=== PATIENT | female | born 1970 | race Caucasian/White ===

== ENCOUNTER 2016-09-25 19:55 | Emergency (ER) | payer BC ==
--- NOTE | 2016-10-05 07:29 | ER ---
ADMIT: 09/25/2016 RM/LOC: ER [facility] MR#: [id number] [address] [address] MARJORIE MONTE [address] [place] [place], [place] [address] Emergency Room Report SEX: F AGE: 46 : 1970 DATE: 09/25/2016 ADDENDUM: A 46-year-old female, comes in with complaints of some paresthesias, primarily in her left upper extremity on her forearm. She also states that she has had some vague discomfort in her chest. These symptoms have been going on for about an hour now, came on fairly suddenly and been persistent since onset. She also states that she feels like she has had some shaking sensation primarily in her left upper arm and in general just not felt herself for about a month now. She denies any weakness in any extremity, has not had any recent illness. No fevers or chills. She is slightly anxious and does have some slight tremor to her left upper extremity and the only thing on her neuro exam is that she has some altered light touch, primarily to her forearm on the radial side. Her NIH stroke scale showed she scored 1 and that was for sensory loss or altered sensory. We did get a CT of her head, which was unremarkable. Her CBC was normal, chemistries were normal and her CRP was not elevated. She did receive some Ativan in the Emergency Department as she was quite anxious and she also had some hypertension, which improved when she was more relaxed. At this point, the patient's symptoms are improved, but not entirely back to baseline. I do not believe this is CVA, but we will be discharging the patient home and she is to follow up with her primary care physician as scheduled later today. She was given some Xanax to use as needed for some anxiety. DIAGNOSES: 1. Anxiety. 2. Tremor. 3. Elevated blood pressure. 4. Paresthesia in left arm. Conner Kat MD/ selvin JOB #: [id number] CC: Conner Kat MD, Attending Physician MAIRA Paredes, Family Physician
[2016-11-23] MEDS ORDERED: COLACE-DPS100 MG PO (19:43)
[2016-11-23] MEDS ORDERED: TRINESSA TABLE1 EACH PO (19:43)
[2016-11-23] MEDS ORDERED: PROTONIX40 MG PO (19:43)
[2016-11-23] MEDS ORDERED: THERAPEUTIC MUL1 TAB PO (19:44)
[2016-11-23] MEDS ORDERED: DECADRON-DPS4 MG PO (19:44)
[2016-11-23] MEDS ORDERED: SYNTHROID125 MCG PO (19:44)
[2016-11-23] MEDS ORDERED: KEPPRA DPS500 MG PO (19:44)
[2016-11-23] MEDS ORDERED: ROCEPHIN DPS2 GM IV (19:45)
[2016-11-23] MEDS ORDERED: VANCOMYCIN1 DOSE IV (19:45)
[2016-11-23] MEDS ORDERED: FLAGYL-DPS500 MG PO (19:46)
[2016-11-23] MEDS ORDERED: TYLENOL DPS325 MG PO (19:46)
[2016-11-23] MEDS ORDERED: NORCO 5-325 TA1 EACH PO (19:46)
== END 2016-09-25 23:20 | disposition home or self-care (01) ==
LOC: ER 19:55
DX: R20.9 Unspecified disturbances of skin sensation (principal); I10 Essential (primary) hypertension; F41.9 Anxiety disorder, unspecified; R25.1 Tremor, unspecified; Z88.0 Allergy status to penicillin; Z79.899 Other long term (current) drug therapy

== ENCOUNTER 2016-11-19 14:30 | Inpatient (IN) | payer BC ==
[~2016-11-19] VITALS: Ht 172.7 cm; Wt 70.4 kg
--- NOTE | ~2016-11-19 | DS ---
ADMIT: 11/19/2016 RM/LOC: 530 [facility] MR#: [id number] [address] [address] MARJORIE MONTE [address] [place] [address] General Discharge Summary SEX: F AGE: 46 : 1970 ADMISSION DATE: 11/19/2016 DISCHARGE DATE: 11/21/2016 SERVICE: Neurosurgery. REASON FOR ADMISSION: 1. Abnormal MRI. 2. Brain lesion with cerebral edema. CONSULTS: 1. Nelli Murray MD, with Infectious Disease. 2. Amy Andrade MD, with Ophthalmology. 3. Jose Eduardo Sheehan MD, with Neurology. HOSPITAL COURSE: Ms. Monte is a very pleasant, 46-year-old female whom about a couple of months ago had some tingling in her arm and had some headaches. A CT scan was obtained and was normal. For the last week or two, she had consistent headaches and was actually being treated for a sinus infection. An MRI and CAT scan with contrast was obtained and was abnormal, and she was sent to the [facility] ER for evaluation. The CT scan showed a right-sided frontal parietal ring-enhancing lesion, and the MRI showed the same with quite a bit of vasogenic edema with a 12 mm midline shift. It was noted that her father from a primary brain tumor that was fast growing when she was 4 years old. She was admitted to the intensive care unit for close monitoring and care. She had been taking ibuprofen and that along with a cerebral edema made her poor candidate for cranial surgery or lumbar puncture. Infectious Disease was consulted. She was started on Decadron for the edema. She was also given a one time dose of mannitol. She was started on vancomycin Rocephin and Flagyl. She had a penicillin allergy, therefore was not started on ampicillin. Records were attempted to be obtained from her father and were no longer available. Hospital day #2, she was awake and alert. She was afebrile and her vital signs were stable. She was moving all extremities x4 with 5/5 strength. She was complaining of a headache and nausea. She was started on some p.r.n. tramadol. She was moved out of the intensive care unit to the Med/Surg floor. Dr. Andrade was consulted for evaluation to rule out toxoplasma or CMV. She felt this was negative after examination. She did work with Physical Therapy and Occupational Therapy and tolerated it quite well. An MRI of the brain with contrast was obtained. This revealed 3 large peripherally enhancing intracranial mass lesions in the right cerebral hemisphere with vasogenic edema. Hospital day #3, she was awake and alert, she was afebrile and her vital signs were stable. She was moving all extremities x4 with 5/5 strength. She was complaining of some slight right-sided headache. She did not have a pronator drift. Dr. Sheehan with Neurology was consulted regarding the lesions. She was ambulating, urinating, and defecating per her norm and was requesting discharge home. Plan was for biopsy the following week after the NSAIDs were out of her system for an appropriate amount of time. She was dismissed home. ADMIT: 11/19/2016 RM/LOC: 530 [facility] MR#: [id number] [address] [address] MARJORIE MONTE [address] [place] [address] General Discharge Summary SEX: F AGE: 46 : 1970 DISCHARGE CONDITION: Good. MEDICATIONS: 1. Colace 100 mg p.o. b.i.d. 2. Protonix 40 mg p.o. daily. 3. Decadron 4 mg p.o. q.6 hours. 4. Keppra 500 mg p.o. q.12 hours. 5. Hydrocodone 5/325 p.o. q.4 hours p.r.n. 6. Tylenol 650 mg p.o. q.4 hours p.r.n. 7. Zofran 4 mg p.o. q.4 hours p.r.n. 8. TriNessa daily. 9. Levothyroxine 125 mcg daily. 10.Multivitamin daily. 11.Vancomycin 1.5 g IV q.12 hours. 12.Rocephin 2 g IV q.12 hours. DISCHARGE INSTRUCTIONS: Per Dr. Cooper. She can have a regular diet. She should have a vancomycin trough on 11/22/2016 before her p.m. dose. She should have a CMP on 11/26/[address] Murray. She should not work at this time. She should be up and moving at home, but nothing with strenuous exercise or getting her heart rate cleared. She will call with any questions or concerns including neurological worsening, signs or symptoms of infection, or any other issues. She should not take any NSAIDs or aspirin containing products. FOLLOWUP: She is scheduled for surgery the following week. DISPOSITION: She was discharged home. Total [id number] time for the discharge planning care coordination was 30 minutes. Violet Gambino APRN / Usman Cooper MD / selvin JOB #: [id number] CC: Usman Cooper MD, Attending Physician Usman Cooper MD, Family Physician
--- NOTE | ~2016-11-19 | ECH ---
Transthoracic Echocardiography Report (TTE) Demographics Patient Name MARJORIE MONTE Date of Study 11/20/2016 Patient Number [id number] Visit Number [id number] Date of 1970 Room Number 530 Accession Number [id number] Gender Female Age 46 year(s) Referring Kenneth Adrian Potato Peeler Camila Dale [facility] Physician MD Trevor Whitmore MD Physician Interpreting Azael Abbott MD Assistant Research Scientist Physician Supervising Ordering Physician Trevor Whitmore MD, MD/P Nurse Stress Television News Photographer Conclusions Summary Technically fair exam. The estimated left ventricular ejection fraction is 66-65%. Normal echocardiogram. Procedure Type of Study TTE procedure:Echo Complete SF. Procedure Date Date: 11/20/2016 Start: 02:34 PM Technical Quality: Adequate visualization Indications:Fever. Additional Indications:brain abcess Appropriate Use Criteria: 8 Height: 68 inches Weight: 149 pounds BSA: 1.8 m Rhythm: Within normal limits HR: 72 bpm BP: 145/65 mmHg M-Mode/2D Measurements LV Diastolic Dimension: 4.45 cm LV Systolic Dimension: 2.64 cm LV Septum Diastolic: 0.91 cm LV PW Diastolic: 0.95 cm AO Root Dimension: 2.48 cm Cardiac Output: 4.43 l/min LA Dimension: 3.65 cm Cardiac Index: 2.46 l/min*m RV Diastolic Dimension: 1.96 cm LA volume index: 30 ml/m LVOT: 1.94 cm LVOT VTI: 20.84 cm RV Base: 3.2 cm LV Stroke volume: 61.57 ml LV Stroke volume index: 34.21 ml/m Doppler Measurements AV Peak Velocity: 1.2 m/s MV Peak E-Wave: 0.76 m/s AV Peak Gradient: 5.76 mmHg MV Peak A-Wave: 0.5 m/s AV Mean Gradient: 3.5 mmHg MV E/A Ratio: 1.53 LVOT Peak Velocity: 0.99 m/s MV P1/2t: 50.5 msec AV Area (Continuity):2.64 cm MV Deceleration Time: 165.8 msec MV Area (PHT): 4.36 cm PV Peak Velocity: 0.98 m/s PV Peak Gradient: 3.82 mmHg RA Area: 14.01 cm Findings Left Ventricle The left ventricle is normal in size . Diastolic assessment reveals normal relaxation. Right Ventricle Normal right ventricle structure and function. Left Atrium Normal left atrial size. Right Atrium Normal right atrial size. Mitral Valve Normal mitral valve structure and function. Aortic Valve Normal aortic valve structure and function. Tricuspid Valve Normal tricuspid valve structure and function. Pulmonic Valve Normal pulmonic valve structure and function. Pericardial Effusion No evidence of pericardial effusion. Miscellaneous Visualized portions of the aortic root and ascending aorta appear normal in size. Pleural Effusion No evidence of pleural effusion. Signature
--- NOTE | 2016-11-23 08:25 | ER ---
ADMIT: 11/19/2016 RM/LOC: 309 [facility] MR#: [id number] [address] [place] [id number] MARJORIE MONTE [address] [place] [address] Emergency Room Report SEX: F AGE: 46 : 1970 DATE: 11/19/2016 ADDENDUM: 46-year-old white female coming over from the imaging center, [facility], with initial results of the CT and MRI showing a mass/abscess, unknown etiology. At this time, we did do the sepsis routine on her only because of possibility of abscess though she has no fever and otherwise negative screen. At this time, her exam was normal. We have lab pending here. We have a CT chest, abdomen, and pelvis as well and then I had spoken with Dr. Cooper, Neurosurgery and he will admit. CONDITION ON DISCHARGE: Serious but stable. George Thomason MD/ piercel JOB #: [id number] CC: Usman Cooper MD, Attending Physician Usman Cooper MD, Family Physician
[2016-11-23] MEDS ORDERED: TRINESSA TABLE1 EACH PO (19:43)
[2016-11-23] MEDS ORDERED: COLACE-DPS100 MG PO (19:43)
[2016-11-23] MEDS ORDERED: PROTONIX40 MG PO (19:43)
[2016-11-23] MEDS ORDERED: DECADRON-DPS4 MG PO (19:44)
[2016-11-23] MEDS ORDERED: THERAPEUTIC MUL1 TAB PO (19:44)
[2016-11-23] MEDS ORDERED: SYNTHROID125 MCG PO (19:44)
[2016-11-23] MEDS ORDERED: KEPPRA DPS500 MG PO (19:44)
[2016-11-23] MEDS ORDERED: VANCOMYCIN1 DOSE IV (19:45)
[2016-11-23] MEDS ORDERED: ROCEPHIN DPS2 GM IV (19:45)
[2016-11-23] MEDS ORDERED: TYLENOL DPS325 MG PO (19:46)
[2016-11-23] MEDS ORDERED: NORCO 5-325 TA1 EACH PO (19:46)
[2016-11-23] MEDS ORDERED: FLAGYL-DPS500 MG PO (19:46)
--- NOTE | 2016-11-27 14:23 | CO ---
ADMIT: 11/19/2016 RM/LOC: 530 [facility] MR#: [id number] [address] [address] MARJORIE MONTE [address] [place] [address] Consultation SEX: F AGE: 46 : 1970 DATE OF CONSULTATION: 11/20/2016 ATTENDING PHYSICIAN: Usman Cooper CONSULTING PHYSICIAN: Amy Andrade MD HISTORY OF PRESENT ILLNESS: This patient is a 46-year-old white female, who was admitted from the ER yesterday with a mass over her right parietal area seen on both CAT scan and MRI. She apparently two months ago had tingling in her left arm and leg. At that time, a CAT scan was done of the brain which was read out as normal. She has had a 1-week history of headache, dizziness, and some blurred vision in the right eye. She had an MRI which was found to be abnormal and admitted to the ICU. I do not have access to the MRI as it was done [facility], but according to the nurse, it showed a right parietal lesion with a 12 mm shift. I was consulted by Infectious Disease, Dr. Murray to look for any evidence of toxoplasmosis or CMV on her ocular examination. The patient denies any tingling now in her arms or legs. She denies flashes. She does have a history of some floaters, but this is not changed recently. She has some nausea, but no vomiting. No recent illness. Past ocular history is significant for myopia for which she normally wears contacts, but she is now wearing glasses. PAST MEDICAL HISTORY: Significant for hypothyroidism. She denies any recent history of upper respiratory infection or foreign travel ever in the past. SOCIAL HISTORY: Negative for smoking. She does have occasional alcohol use. She denies illicit drug use or IV drug use. 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 MEDICATIONS: See the chart. ALLERGIES: PENICILLIN. REVIEW OF SYSTEMS: As above. No other complaints. FAMILY HISTORY: Significant for a brain mass, which I believe was a malignant tumor, diagnosed in her father, who in his 40s. PHYSICAL EXAMINATION Examination at bedside with her glasses prescription for which she has no bifocals 20/30+ in the right eye, 20/25+ in the left eye with the near chart. Pupils are 6 mm, 2+ react to light. No afferent pupillary defect. External examination shows mild dermatochalasis. Visual umaña are full. Motility shows orthophoria with full ductions and versions. Slit lamp examination shows a clear cornea, clear conjunctiva. The anterior chamber is deep and quiet. Iris is normal. The lens is clear. Pressures were 20 and 18. The dilated fundus ADMIT: 11/19/2016 RM/LOC: 530 [facility] MR#: [id number] [address] [address] MARJORIE MONTE [facility] [place] [address] Consultation SEX: F AGE: 46 : 1970 examination using 1% Mydriacyl, 2.5% phenylephrine x2 in both eyes shows a cup- to-disk ratio of 0.3 and 0.4 with no optic nerve edema. She has a normal macula and peripheral retina. Her vitreous is clear. She has no double vision on exam or by history. IMPRESSION: Brain mass over the right parietal area with no ocular signs or symptoms of cytomegalovirus or toxoplasmosis. MRI is planned as is biopsy by Dr. Cooper. I have advised the patient to let us know if she has any symptoms of floaters, pain, redness, decreased vision, or any other ocular symptoms and I have asked them to reconsult me if she has any problems. Amy Andrade MD/ selvin JOB #: [id number] CC: Usman Cooper, Attending Physician Usman Cooper, Family Physician
--- NOTE | 2016-11-29 07:27 | HP ---
ADMIT: 11/19/2016 RM/LOC: 309 [facility] MR#: [id number] 2620 [facility] [address] [place] [id number] MARJORIE MONTE [address] [place], [place] [address] Pre-OP History and Physical SEX: F AGE: 46 : 1970 DATE OF SERVICE: REASON FOR ADMIT: Brain lesion with cerebral edema. HISTORY OF PRESENT ILLNESS: Ms. Monte is a very pleasant lady who has had some headaches and nausea. It has gotten worse over the last week or so. She had come in with some left arm numbness and tingling and some headache a couple of months ago with a CAT scan that was normal at that time. She had a sinus infection a week ago, and she has been on antibiotics for that. She had a tooth abscess that was drained in March of last year. She has not had fevers or chills. No exposures to Infectious Diseases that she is aware of. No recent travel, no possibility of HIV. PAST MEDICAL HISTORY: Migraines, hypothyroidism, and nausea. She has had a 10-pound weight loss over the last 1-2 weeks. SOCIAL HISTORY: Nonsmoker and nondrinker. FAMILY HISTORY: She has a father who after a very short snyder with a very aggressive brain tumor in 1973. Neither her nor her mother know what the type of tumor was. REVIEW OF SYSTEMS: A complete review of systems was obtained with pertinent positives annotated in the preceding portion of this note. PHYSICAL EXAMINATION: VITAL SIGNS: 127/73, 78 beats, 16 respirations, 99% on room air. GCS 15. GENERAL: She is an otherwise healthy-appearing woman with an atraumatic head. HEENT: No scleral icterus. Clear oropharynx. LUNGS: Normal respiratory excursion. ABDOMEN: Soft abdomen, 2+ radial pulses. NEUROLOGICAL EXAMINATION: MENTAL STATUS: She is awake, alert, oriented x4. She has no dysphonia, dysarthria, or aphasia. Her affect is appropriate. Her thought content is normal. CRANIAL NERVES: Cranial nerves II through XII are individually tested and found to be intact without deficit. MOTOR EXAM: Motor exam reveals 5/5 strength in bilateral upper and lower extremities with normal bulk, normal tone. Deep tendon reflexes 3/4 in the upper and lower extremities. No Ashley, no Babinski. She does have crossing of the adductors. CEREBELLAR: No dysmetria. Sensation intact to light touch in upper and lower extremities. GAIT: She was able to rise from a CT scanner table and walk to the cart for transfer back to the ER. I initially saw her in the CT scanner in Radiology and then followed up in the ER. ASSESSMENT AND PLAN: Ms. Monte is a very pleasant woman with a right-sided richard-frontal and extending into the parietal contrast-enhancing lesion with ADMIT: 11/19/2016 RM/LOC: 309 [facility] MR#: [id number] [facility] [address] [address] MARJORIE MONTE [address] [place] [address] Pre-OP History and Physical SEX: F AGE: 46 : 1970 severe edema and significant shift who is surprisingly neurologically intact. She has a CT scan that even in retrospect appears normal from the when she presented with tingling left arm. This right-sided lesion is likely an abscess although with her family history this certainly could be a fast growing tumor. I have obtained CT scan of the chest, abdomen, and pelvis to evaluate for tumor in other sites. Portion of this almost looks like ventricular involvement, although she does not see nearly sick enough to have ventriculitis. Her only laboratory abnormality in relation to infection or tumor workup is the white blood count that is low. She does not really have any exposure history, although she has given me verbal consent to obtain HIV laboratory analysis. I have spoken to Dr. Murray about her case. We will start her on vanc, Rocephin, Flagyl, and ampicillin. The patient has taken Aleve recently and would be reasonably high risk for hemorrhage and especially in her case with the amount of edema would be very concerned with either lumbar puncture or cranial surgery at this point, due to the risk of further herniation. She has subfalcine herniation at this point. Because she looks so good, we are going to start antibiotics. I am not going to plan for any procedures until safely off blood thinners. Blood cultures have already been drawn. Antibiotics were being started. I am putting her on antiepileptic prophylaxis because I am concerned that if she would have any increasing cerebral pressure that she could herniate and significantly decompensate or . I have discussed all this with her and her . We will work this up and keep her in the intensive care unit for right now with a plan for a biopsy early next week once she has been off any blood thinners for 7 days. We will consider something emergently earlier if need be. I believe her and her understand the significance and severity. I am going to try to obtain a pathology report from 1973 but that may be easier said than done at this time. We will keep a very close eye on her. Dr. Murray is aware, and we will see her in the morning. We will not have any specimen for her until things are safer to evaluate. Usman Cooper MD/ selvin JOB #: [id number] CC: Usman Cooper, Attending Physician Usman Cooper, Family Physician
--- NOTE | 2016-12-05 15:53 | CO ---
ADMIT: 11/19/2016 RM/LOC: 530 [facility] MR#: [id number] [address] [address] MARJORIE MONTE [address] [place] [address] Consultation SEX: F AGE: 46 : 1970 DATE OF CONSULTATION: 11/21/2016 ATTENDING PHYSICIAN: Usman Cooper MD CONSULTING PHYSICIAN: Jose Eduardo Sheehan MD REASON FOR CONSULTATION: Brain mass. HISTORY OF PRESENT ILLNESS: The patient is a 46-year-old woman with past medical history as below, who about a month ago, developed some tingling in her left arm and leg. At that time, the CAT scan was done, which was read as normal. In fact, I did review the CT scan and did not find any abnormality. The patient had progressive worsening of the headache and dizziness with some blurred vision in the last week. Therefore, she presented to the [facility] ER. The CT scan showed a ring-enhancing lesion and the MRI showed the same with quite a bit of vasogenic edema and a 12 mm midline subfalcine shift. The patient was admitted to Neurosurgery Service, Dr. Cooper with Dr. Murray, Infectious Disease specialist consulting as well as Dr. Amy Andrade, applications architect, who evaluated the patient. So far, no significant abnormality was identified on . The patient could not get LP for CSF study secondary to the edema. The headache improved quite a bit with pain medication and the patient was also started on steroids to reduce the edema. PAST MEDICAL HISTORY: Significant for hypothyroidism and some migraine headaches. FAMILY HISTORY: History of brain tumor in her father in 1973. SOCIAL HISTORY: No smoking. No alcohol intake. No illicit drug use. REVIEW OF SYSTEMS: All systems reviewed, negative except as per HPI. MEDICATIONS: Mainly NSAIDs, Tylenol taken p.r.n. recently on outpatient basis. She also takes sumatriptan intranasal, levothyroxine, and multivitamins. ALLERGIES: NO KNOWN DRUG ALLERGIES. PHYSICAL EXAMINATION: VITAL SIGNS: Temperature T-max yesterday 100.3, heart rate 84, 16 respiration rate, blood pressure 132/77, and saturation 97% on room air. GENERAL: The patient is in no acute discomfort. HEAD: Normocephalic. NECK: Supple. CHEST: Normal respiratory rises. CARDIOVASCULAR: Regular rate and rhythm. ABDOMEN: Nondistended. EXTREMITIES: No clubbing or cyanosis. ADMIT: 11/19/2016 RM/LOC: 530 [facility] MR#: [id number] [address] [address] MARJORIE MONTE [address] [place] [address] Consultation SEX: F AGE: 46 : 1970 NEUROLOGICAL EXAMINATION: The patient is awake, alert, and appropriately oriented. Speech is normal. Language is normal. Fund of knowledge is normal. She is euthymic. Affect congruent with mood. Cranial nerves II through XII are normal. Visual umaña are normal. Pupils are equal, reactive. Extraocular muscles intact. Facial sensation is normal. Face is symmetric. Hearing to voice intact. Uvula midline. Palatal arch is symmetric. Shoulder shrug symmetric. Tongue midline, moveable. Motor examination reveals full strength throughout. No drift. Fine motor movements are intact. Normal tone. Sensory to touch nonlateralizing. Reflexes brisk symmetric, but no pathological spread. Coordination [id number] intact. Gait normal. LABORATORY DATA: Reviewed in electronic medical record. Blood morphology, CBCs shows a slight leukopenia, normal hemoglobin level, normal platelet count. Peripheral smear shows the red cells to have normal morphology. There are few atypical lymphocytes, but otherwise the white cells are unremarkable. Platelets appear normally granules and distributed. Impression was slight leukopenia with occasional atypical lymphocytes, favor reactive. No dysplastic features and no leukemia. CBC on admission, white count 3.8, hemoglobin 14.5, and platelet 208. Lactic acid on admission, normal comprehensive metabolic panel, fairly unremarkable as well as chest pain profile, CK, CRP, procalcitonin was normal. Sedimentation rate was 11. Coagulation markers normal. HIV screen negative. Blood cultures so far normal. MRI discussed above in HPI. Echocardiogram done, normal ejection fraction. Normal echocardiogram. YOVANY screen, YOVANY is negative. Toxoplasma antibodies are pending. ASSESSMENT: Brain lesions, which are contrast enhancing. There is quite a bit of vasogenic edema and midline shift. The differential is quite vast including but not limited to, ADMIT: 11/19/2016 RM/LOC: 530 [facility] MR#: [id number] [address] [place] [id number] MARJORIE MONTE [address] [place] [address] Consultation SEX: F AGE: 46 : 1970 A. Neoplastic, either primary or metastatic or lymphoma in origin. B. Infectious, ID on board, covered with antibiotics and antifungal. C. Inflammatory, question of tumefactive multiple sclerosis. However, there is quite a bit of vasogenic edema which I believe is not as typical for tumefactive multiple sclerosis. PLAN: The patient will undergo biopsy next week with CSF studies that will be drawn during the procedure. I will communicate in person with Dr. Cooper prior to actual biopsy and CSF studies which will include demyelinating panel as well as flow cytometry and cytopathology review. Thank you very much for this interesting consultation. Jose Eduardo Sheehan MD/ selvin JOB #: [id number] CC: Usman Cooper MD, Attending Physician Usman Cooper MD, Family Physician
--- NOTE | 2016-12-16 10:36 | CO ---
ADMIT: 11/19/2016 RM/LOC: 309 [facility] MR#: [id number] [address] [address] MARJORIE MONTE [address] [place] [address] Consultation SEX: F AGE: 46 : 1970 DATE OF CONSULTATION: 11/20/2016 ATTENDING PHYSICIAN: Usman Cooper CONSULTING PHYSICIAN: Nelli Murray MD REASON FOR CONSULT: Antibiotic management. HISTORY OF PRESENT ILLNESS: Ms. Monte is a 46-year-old woman, who started experiencing dizziness and hand numbness since last 2 months. She initially had CT scan of her head in August, which was within normal limits. Her symptoms got worse and later underwent an MRI and CT head with contrast, which showed a ring-enhancing lesion with significant cerebral edema and midline shift. She reports having a tooth abscess, which was extracted in March of 2016. She also had some sinus infection in 1-2 weeks ago and has been on antibiotics for that. She has 2 pet cats at home, and she changes litter box. She works at [employer] and is sometimes exposed to chemicals. She denies any recent travel or any sick contacts. She denies eating any unpasteurized milk or cheeses or any other food. She denies any water sport activity or use of neti pots. She does wear contact lenses every day, but has not been using it due to her symptoms of dizziness. She denied any fever at home. She has lost around 10 pounds of weight within last 2 months and has poor appetite. Her HIV test was negative. She denies any night sweats, but does report some chills. PAST MEDICAL HISTORY: Migraine and hypothyroidism. SOCIAL HISTORY: She lives at home with her and children. Denies any smoking or recreational drug use. Drinks alcohol occasionally. FAMILY HISTORY: Her father was diagnosed with some brain tumor in 1973 and later without any definite diagnosis. REVIEW OF SYSTEMS: A 10-point review of systems negative except as mentioned in HPI. PHYSICAL EXAMINATION: VITAL SIGNS: Current temperature 97.8, heart rate 74, respirations 14, blood pressure 140/81, 98% on room air. GENERAL: No acute distress. HEENT. Head, normocephalic and atraumatic. Extraocular movements intact. LYMPH: No palpable anterior/posterior cervical or supraclavicular lymphadenopathy. CHEST: Clear to auscultation bilaterally. No wheezes, rales, or rhonchi. CARDIOVASCULAR: S1 and S2 heard. Regular rate and rhythm. ABDOMEN: Soft, nontender, and nondistended. Active bowel sounds. EXTREMITIES: No peripheral edema. SKIN: No Rash noted on exposed skin. LABORATORY DATA REVIEW: CBC today shows white count of 3.6, hemoglobin 13.6, ADMIT: 11/19/2016 RM/LOC: 309 [facility] MR#: [id number] [address] [address] MARJORIE MONTE [address] [place] [address] Consultation SEX: F AGE: 46 : 1970 and platelets of 202. ESR is 11. She underwent CT chest, abdomen, and pelvis, which showed linear scarring versus atelectasis in the left base and otherwise unremarkable CT scan with no acute abdominopelvic abnormality. CT head showed extensive edema throughout the right hemisphere and 12 mm of midline shift and a ring-enhancing lesion. HIV test was negative. Blood cultures have been no growth to date. ASSESSMENT AND PLAN: 1. Brain, ring-enhancing lesion. There is broad differential diagnosis including malignancy vs infectious etiology like, a. Bacterial- could be Staphylococcus versus Strep given recent tooth extraction in March 2016 or any other anaerobic infection given sinus infection. b. Viral, there is question of ventriculitis and could be CMV ventriculitis. c. Parasite - she has 2 pet cats and toxoplasma is high in differential diagnosis. She also uses contact lenses, however, is less likely acanthamoeba as there is no evidence of any keratitis. d. Fungal - Cryptococcus is in differential and hence we will send a serum cryptococcal antigen. I will also consult Ophthalmology to rule out any ocular toxoplasma or CMV retinitis. She is currently getting steroids to reduce the edema, and she is scheduled for brain biopsy next week. We will check the brain tissue for routine fungal and AFB cultures. At this time, I will continue ceftriaxone, vancomycin, and metronidazole for now. We will also check echocardiogram, YOVANY, and the peripheral smear at this time. Thank you for the consult, and I will continue to follow the patient. Nelli Murray MD/ selvin JOB #: [id number] CC: Usman Cooper, Attending Physician Usman Cooper, Family Physician
== END 2016-11-21 12:22 | disposition home or self-care (01) | DRG 70 ==
LOC: ER 14:30 → 3ICU 16:30 → 5MS 11-20 15:57
PROVIDERS: ADMIT Neurological Surgery
DX: G93.9 Disorder of brain, unspecified (principal); G93.6 Cerebral edema; G43.909 Migraine, unspecified, not intractable, without status migrainosus; E03.9 Hypothyroidism, unspecified

== ENCOUNTER → 2016-11-26 | Outpatient (CLI) | payer BC ==
[~2016-11-26] MED LIST: COLACE-DPS100 MG PO; DECADRON-DPS4 MG PO; FLAGYL-DPS500 MG PO; KEPPRA DPS500 MG PO; NORCO 5-325 TA1 EACH PO; PROTONIX40 MG PO; ROCEPHIN DPS2 GM IV; SYNTHROID DP0.125 MG PO; SYNTHROID125 MCG PO; THERAPEUTIC MUL1 TAB PO; TRINESSA TABLE1 EACH PO; TYLENOL DPS325 MG PO; VANCOMYCIN1 DOSE IV; ZOFRAN4 MG PO
== END | disposition home or self-care (01) ==
LOC: RAD.S 12:50
DX: G93.9 Disorder of brain, unspecified (principal)

== ENCOUNTER 2016-11-27 07:54 | Inpatient (IN) | payer BC ==
[~2016-11-27] VITALS: Ht 172.7 cm; Wt 71.0 kg
--- NOTE | ~2016-11-27 | DS ---
ADMIT: 11/27/2016 RM/LOC: 526 [facility] MR#: [id number] [facility]#: [id number] [address] [address] MARJORIE MONTE [address] [place] [address] General Discharge Summary SEX: F AGE: 46 : 1970 ADMISSION DATE: 11/27/2016 DISCHARGE DATE: 11/29/2016 SERVICE: Neurosurgery. REASON FOR ADMISSION: 1. Brain lesion. 2. Headaches. PROCEDURE: Stereotactic needle biopsy of the right frontal lobe. HOSPITAL COURSE: Ms. Monte tolerated her procedure well. Postoperatively, she was taken to the [facility]/Surg floor for monitoring and care. 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 Postop day #1, she was awake and alert. She was afebrile and her vital signs were stable. She was moving all extremities x4 with 5/5 strength. Her dressing was clean, dry, and intact. She was transferred out of the intensive care unit to the Med/Surg floor. She did work with Physical Therapy and Occupational Therapy and tolerated this quite well. She was evaluated by Speech Therapy. Postop day #2, she was awake and alert. She was afebrile and her vital signs were stable. She was moving all extremities x4 with 5/5 strength. She was complaining of a headache that was mild. The medications were helping. She was ambulating, urinating, and defecating per her norm and was requesting discharge home. DISCHARGE CONDITION: Good. MEDICATIONS: 1. Hydrocodone 5/325, one to two p.o. q.4 hours p.r.n. 2. Colace 100 mg p.o. b.i.d. 3. TriNessa daily. 4. Protonix 40 mg daily. 5. Levothyroxine 125 mcg daily. 6. Decadron 4 mg q.6 hours. 7. Zofran 4 mg q.4 hours p.r.n. 8. Tylenol 650 mg q.4 hours p.r.n. 9. Vancomycin 2.25 g IV q.12 hours. 10.Rocephin 2 g IV q.12 hours. DISCHARGE INSTRUCTIONS: Per Dr. Cooper. She can shower, she should use baby shampoo only on her hair. She should not use any other hair products. ADMIT: 11/27/2016 RM/LOC: 526 [facility] MR#: [id number] [address] [address] MONTEMARJORIE Luis Fernando [address] [place] [address] General Discharge Summary SEX: F AGE: 46 : 1970 She should not use a hair specialist or any curling iron. She should utilize fall precautions. She can have a regular diet. She will call with any questions or concerns including neurological worsening, signs or symptoms of infection, or any other issues. FOLLOWUP: She will follow up with Dr. Cooper next in clinic. She will follow up with Oncology as they request. DISPOSITION: She was discharged to home. Total [id number] time for the discharge planning care coordination was 30 minutes. Violet Gambino APRN / Usman Cooper MD / selvin JOB #: [id number] CC: Usman Cooper MD, Attending Physician MAIRA Paredes, Family Physician
[~2016-11-27 07:54] MED LIST changes: -SYNTHROID DP0.125 MG PO; -ZOFRAN4 MG PO
--- NOTE | 2016-11-29 07:27 | OR ---
ADMIT: 11/27/2016 RM/LOC: 305 [facility] MR#: [id number] [address] [address] MARJORIE MONTE [address] [place] [place], [place] [id number] Operative/Delivery Room Report SEX: F AGE: 46 : 1970 SURGERY DATE: 11/27/2016 SURGEON: Usman Cooper MD PREOPERATIVE DIAGNOSIS: Large brain lesion in the right frontal lobe. 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 PROCEDURE: 1. Stereotactic-guided neuronavigational needle biopsy. 2. Miniature open biopsy under direct visualization. RESIDENTIAL CARE OFFICER: Violet Gambino APRN DESCRIPTION OF PROCEDURE: After gaining informed consent, the patient was taken to the operative theater, placed under general endotracheal anesthesia in supine position. A time-out was utilized to ascertain the correct site and side of surgery as well as other pertinent patient historical information. Counts were obtained at the beginning and end of the case with no change betwixt the two. Antibiotics were given within 1 hour of incision. [employer] was brought into the field and the planned trajectories were marked out on her right frontal region near Arianne's point. Once this was completed and her calvarium had been co-registered, she was prepped and draped in usual sterile fashion. An incision was fashioned over top of the planned trajectory site and then the VarioGuide needle biopsy equipment was brought into the field. The needle was then passed down along trajectory 1 with a screen shot being obtained. There was one good core of sample that came from this. The needle was passed down 4 to 6 times for each trajectory, although the sampling was relatively limited. There was some hemorrhage and necrotic tissue noted. Since there was concern for infection, this was sent off for microbiological specimen. Once this was completed, attention was turned to the second trajectory. A screen shot was also obtained on the [employer] system. By this point, the initial frozen section had come back, which showed hypercellular brain tissue, but not definitively diagnostic. The second trajectory set was sent down with a similar fashion. at this point, to be absolutely certain that appropriate tissue was obtained, I converted to an open portion of the biopsy where I under direct visualization passed the stereotactic probe through the right frontal lobe to the sites assisted by the suction and delineated a narrow band of abnormal appearing tissue. This band was sampled and sent for ADMIT: 11/27/2016 RM/LOC: 305 [facility] MR#: [id number] [address] [address] MARJORIE MONTE [address] [place] [address] Operative/Delivery Room Report SEX: F AGE: 46 : 1970 third specimen for the open portion of the biopsy. 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 Once this was all completed and evaluated, pristine hemostasis was obtained. A justin hole plate was placed over top of the justin hole and the wound was closed with simple, inverted, interrupted 2-0 Vicryl and feliciano on the skin. Ms. Gambino assisted with suction, retraction, and closure at the end of the case. COMPLICATIONS: None. ESTIMATED BLOOD LOSS: Charted. SPECIMEN: Multiple, sent for pathology including frozen section revealing likely high-grade glioma. Usman Cooper MD/ selvin JOB #: [id number] CC: Usman Cooper, Attending Physician MAIRA Paredes, Family Physician
[2016-11-29] MEDS ORDERED: COLACE-DPS100 MG PO (20:13)
[2016-11-29] MEDS ORDERED: PROTONIX40 MG PO (20:13)
[2016-11-29] MEDS ORDERED: TRINESSA TABLE1 EACH PO (20:13)
[2016-11-29] MEDS ORDERED: SYNTHROID DP0.125 MG PO (20:13)
[2016-11-29] MEDS ORDERED: TYLENOL DPS325 MG PO (20:14)
[2016-11-29] MEDS ORDERED: ZOFRAN4 MG PO (20:14)
[2016-11-29] MEDS ORDERED: DECADRON-DPS4 MG PO (20:14)
[2016-11-29] MEDS ORDERED: NORCO 5-325 TA1 EACH PO (20:14)
--- NOTE | 2016-12-13 16:37 | CO ---
ADMIT: 11/27/2016 RM/LOC: 526 [facility] MR#: [id number] [facility]#: [id number] [address] [facility] [address] [place] [phone] MARJORIE MONTE [address] [place] [address] Consultation SEX: F AGE: 46 : 1970 DATE OF CONSULTATION: 11/28/2016 ATTENDING PHYSICIAN: Usman Cooper MD CONSULTING PHYSICIAN: Zhang De La Torre MD REASON FOR CONSULTATION: Brain tumor likely glioblastoma multiforme. HISTORY OF PRESENT ILLNESS: Ms. Monte is a 46-year-old pleasant woman, was recently admitted because of the headache, seizures, and found to have brain lesions on MRI. She already had brain tumor biopsy. The preliminary diagnosis of glioblastoma multiforme. Talking to the pathologist. We are waiting for the final diagnosis. I have reviewed all the medical records. I have reviewed all the scans and also discussed the case with Dr. Cooper. I have a very thorough discussion with the family members about the possible findings and the need of resection to be done as per Dr. Cooper. This tumor is very big. Therefore, he wants her to go to [facility] for second opinion and possible restrictions over there. She feels much better. She has an IV dexamethasone. Her edema has gotten better. Her speech is better. No nausea, no vomiting. No fever. I have discussed in detail about the GBM is prognosis and the need of surgery as well as the future treatment plan for GBM. PAST MEDICAL HISTORY: She has a migraine headache, hypothyroidism. No other significant. SOCIAL HISTORY: She is a nonsmoker and nondrinker. No IV drug use. ALLERGIES: NO KNOWN DRUG ALLERGIES. FAMILY HISTORY: No family history. She has a father, who of a brain tumor as well back in 1973. No other tumors in the family members. REVIEW OF SYSTEMS: GENERAL: Not in acute distress. RESPIRATORY: No shortness of breath. CARDIOVASCULAR: No chest pain. ENDOCRINOLOGY: No polyuria, no polydipsia. GENITOURINARY: No urgency, no frequency. Nutrition adequate. SKIN: No rashes. NEURO: Awake, alert, and oriented, infection, no fever. PHYSICAL EXAMINATION: VITAL SIGNS: Temperature 98.6, pulse 78, respirations 16, and blood pressure 130/78. HEENT: Normocephalic and atraumatic. LUNGS: Clear. HEART: S1, S2 heard. Regular rate and rhythm. ABDOMEN: Soft, nontender, and nondistended. Positive bowel sounds. EXTREMITIES: No edema. NEUROLOGIC: Awake, alert, oriented x3. ADMIT: 11/27/2016 RM/LOC: 526 [facility] MR#: [id number] [facility] [address] MARJORIE MONTE [address] [place] [address] Consultation SEX: F AGE: 46 : 1970 LYMPHATICS: No abnormal lymph nodes palpated. SKIN: No rash. LABS: WBC 8.5, hemoglobin 12.9, and platelet count 162. Normal kidney and normal LFTs and MRI of the brain, findings noted. IMPRESSION RECOMMENDATIONS: Ms. Monte is a 46-year-old pleasant woman with unfortunate diagnosis of likely glioblastoma multiforme, was admitted because of the syncopal episode, headache, and found to have big tumor in her brain. Biopsy was done and the preliminary diagnosis is glioblastoma multiforme. Brain tumor likely glioblastoma multiforme. She has multifocal disease, as well as big tumors. Therefore, our local neurosurgeon is now comfortable and resecting her without giving her bad debilitating conditions. Therefore, she is better served if she goes to [facility] for further evaluation and possible resections out there. If they can resect it completely and the plan for this GBM is to resect as much as possible and to get chemoradiation treatment thereafter. I have sat down and talked to the family member her friends and her and her mom in detail about the type of this tumor, glioblastoma, prognosis, and treatment plan available. They notice her tumor as her father of brain tumor. So they very receptive family and just wanted to do as much as possible. As she has been young. I have told him and given them the reassurance that I think would be better served if she goes to [facility] and get that resected if possible all completely. For that she will need chemoradiation with Temodar and probably continue Temodar for another one year after radiation is completed. We will see her in clinic and decide the further plan, but will we will also make an appointment for her to see heart a [facility] physician as soon as possible. I have answered all the questions and concern. We had a very nice a long and thorough discussion about this tumor. Thank you for the consultations and opportunity in taking care of the patient. Zhang De La Torre MD/ selvin JOB #: [id number] CC: Usman Cooper MD, Attending Physician Celsa Bui, Family Physician
== END 2016-11-29 15:20 | disposition home or self-care (01) | DRG 25 ==
LOC: 3ICU 07:54 → WOR 07:54 → 3ICU 16:36 → 5MS 11-28 11:48
PROVIDERS: ADMIT Neurological Surgery
PROC: 00B70ZX Excision of Cerebral Hemisphere, Open Approach, Diagnostic (ICD-10-PCS; principal; 2016-11-27)
PROC: 00B03ZX Excision of Brain, Percutaneous Approach, Diagnostic (ICD-10-PCS; principal; 2016-11-27)
DX: C71.9 Malignant neoplasm of brain, unspecified (principal); G93.6 Cerebral edema; E03.9 Hypothyroidism, unspecified; G43.909 Migraine, unspecified, not intractable, without status migrainosus; K21.9 Gastro-esophageal reflux disease without esophagitis; Z87.891 Personal history of nicotine dependence

== ENCOUNTER → 2016-12-18 | Outpatient (CLI) | payer BC ==
[~2016-12-18] MED LIST changes: +SYNTHROID DP0.125 MG PO; +ZOFRAN4 MG PO
== END | disposition home or self-care (01) ==
LOC: RAD.S 08:39
DX: C71.3 Malignant neoplasm of parietal lobe (principal); G93.89 Other specified disorders of brain